=== PATIENT | male | born 1980 | race American Indian/Alaskan Native ===

== ENCOUNTER 2022-06-07 19:32 | Emergency (ER) | payer MEDICAID ==
[~2022-06-07] VITALS: Ht 167.6 cm; Wt 93.0 kg
[2022-06-07 20:00] VITALS: BP 119/77
[2022-06-07] MEDS ORDERED: LIDOCAINE HCL/PF 1% 10 MG/ML 5ML VIAL INFIL ONE (23:15)
[2022-06-07] MEDS ORDERED: TETANUS, DIPHTHERIA, PERTUSSIS VAC/PF 0.5ML (>10YR OLD) IM ONE (23:15)
[2022-06-07] MEDS ORDERED: BACITRACIN ZINC OINT UDPKT TOP ONE (23:15)
[2022-06-07] MEDS ORDERED: IBUPROFEN 600MG TABLET PO ONE (23:15)
== END 2022-06-08 02:36 | disposition left against medical advice (07) ==
LOC: ER 22:08
DX: S01.511A Laceration without foreign body of lip, initial encounter (principal); W26.8XXA Contact with other sharp object(s), not elsewhere classified, initial encounter; Y93.89 Activity, other specified; Y92.89 Other specified places as the place of occurrence of the external cause
CPT/HCPCS: 40650; 99282; 99284

== ENCOUNTER 2022-07-31 07:55 | Emergency (ER) | payer MEDICAID, OTHER ==
[~2022-07-31] VITALS: Ht 160 cm; Wt 73.0 kg
[2022-07-31 07:58] VITALS: BP 124/99
== END 2022-07-31 08:53 ==
LOC: ER 07:55
DX: S01.81XA Laceration without foreign body of other part of head, initial encounter (principal); F10.129 Alcohol abuse with intoxication, unspecified; Y90.9 Presence of alcohol in blood, level not specified; X58.XXXA Exposure to other specified factors, initial encounter; Y93.89 Activity, other specified; Y92.89 Other specified places as the place of occurrence of the external cause; Z65.3 Problems related to other legal circumstances
CPT/HCPCS: 12011; 99283

== ENCOUNTER 2024-02-07 05:30 | Emergency (ER) | payer MEDICAID ==
[~2024-02-07] VITALS: Ht 167.6 cm; Wt 79.7 kg
[2024-02-07 05:37] VITALS: O2SAT 97
[2024-02-07 06:13] LABS: BASOPHILS % 0.6 % (0.0-2.0); DIFFERENTIAL COMMENT 0; EOSINOPHILS % 0.1 % (0.0-5.0); HEMATOCRIT. 43.7 % (42.0-52.0); HEMOGLOBIN. 14.9 g/dL (14.0-18.0); LYMPHOCYTES % 12.1 % (20.0-50.0); MEAN CORPUSCULAR HEMOGLOBIN 33.3 pg (28.0-32.0); MEAN CORPUSCULAR HGB CONC 34.2 g/dL (31.0-37.0); MEAN CORPUSCULAR VOLUME 97.4 fL (80.0-94.0); MEAN PLATELET VOLUME 9.3 fl (7.4-10.4); NEUTROPHILS % 83.2 % (40.0-76.0); PLATELET 208 x1000/uL (130-400); RED BLOOD CELL COUNT 4.48 mill/uL (4.7-6.1); RED CELL DISTRIBUTION WIDTH 13.2 % (11.6-14.6); WHITE BLOOD COUNT 9.6 x1000/uL (4.5-11.0)
[2024-02-07 06:20] LABS: CHLORIDE 109 mEq/L (98-107); POTASSIUM 3.6 mEq/L (3.5-5.1); SODIUM 141 mEq/L (136-145)
[2024-02-07 06:21] LABS: CALCIUM 9.5 mg/dL (8.7-10.4); CARBON DIOXIDE 25 mEq/L (21-32)
[2024-02-07 06:26] LABS: CREATININE 0.7 mg/dL (0.6-1.3); GLUCOSE 113 mg/dL (70-105); UREA NITROGEN BLOOD 7 mg/dL (9-23)
[2024-02-07 06:36] LABS: ETHANOL BLOOD < 10 mg/dL (<10)
[2024-02-07 09:22] LABS: CLARITY URINE CLEAR (CLEAR); COLOR URINE YELLOW (YELLOW); GLUCOSE URINE NEGATIVE (NEGATIVE); KETONES URINE NEGATIVE (NEGATIVE); LEUKOCYTE ESTERASE URINE TRACE (NEGATIVE); NITRITE URINE NEGATIVE (NEGATIVE); OCCULT BLOOD URINE NEGATIVE (NEGATIVE); PH URINE 6.5 (4.5-8.0); PROTEIN URINE NEGATIVE (NEGATIVE); SPECIFIC GRAVITY URINE 1.022 (1.005-1.030); UROBILINOGEN URINE 0.2 E.U./dL (0.2-1.0)
[2024-02-07 09:55] LABS: *AMPHETAMINES SCREEN URINE NEGATIVE (NEGATIVE); *BARBITURATES SCREEN URINE NEGATIVE (NEGATIVE); *BENZODIAZEPINES SCREEN URINE NEGATIVE (NEGATIVE); *COCAINE SCREEN URINE NEGATIVE (NEGATIVE); CANNABINOID URINE SCREEN PRESUMPTIVE POSITIVE (NEGATIVE); ECSTASY MDMA SCREEN URINE NEGATIVE (NEGATIVE); METHADONE URINE SCREEN NEGATIVE (NEGATIVE); OPIATES URINE SCREEN NEGATIVE (NEGATIVE); PHENCYCLIDINE URINE SCREEN NEGATIVE (NEGATIVE)
[2024-02-07 10:21] LABS: MUCUS URINE 2+ /lpf (NONE/TRACE)
[2024-02-07 10:22] LABS: BACTERIA URINE TRACE; SQUAMOUS EPITHELIAL CELL URINE NONE SEEN /lpf (RARE/1+)
[2024-02-07 10:23] LABS: RBC URINE 0-2 /hpf (0-2)
[2024-02-08] MEDS: BUPROPION HCL 150MG TABLET XL 24HR PO SCH (09:00)
[2024-02-08] MEDS: QUETIAPINE FUMARATE 25MG TABLET PO SCH (09:00)
[2024-02-08] MEDS: QUETIAPINE FUMARATE 50MG TABLET PO SCH (21:30)
[2024-02-09] MEDS: BUPROPION HCL 150MG TABLET XL 24HR PO SCH (14:18)
[2024-02-09] MEDS: QUETIAPINE FUMARATE 50MG TABLET PO SCH (21:35)
[2024-02-10 09:13] VITALS: TEMP 36.66960
[2024-02-10 12:19] VITALS: BP 130/70; PULSE 80; RESP 18; O2SAT 99
== END 2024-02-10 12:20 | disposition home or self-care (01) ==
LOC: ER 05:30
DX: R45.851 Suicidal ideations (principal); F31.9 Bipolar disorder, unspecified; F20.9 Schizophrenia, unspecified; Z20.822 Contact with and (suspected) exposure to COVID-19
CPT/HCPCS: 80305; 80048; 81003; 80320; 85025; 36415; 99285; 87426; Z7610; G0480

== ENCOUNTER 2024-03-02 20:14 | Emergency (ER) | payer MEDICAID ==
[~2024-03-02] VITALS: Ht 162.6 cm; Wt 78.0 kg
[2024-03-02 20:48] VITALS: O2SAT 99
[2024-03-02] MEDS: MORPHINE SULFATE 4 MG/ML INJ (FOR IV/IM USE) IM ONE (22:01)
[2024-03-02] MEDS: LIDOCAINE 5% PATCH TOP SCH (22:02)
[2024-03-02] MEDS ORDERED: LIDO700A15 TP (23:08)
[2024-03-03 00:28] VITALS: BP 123/83; PULSE 76; RESP 12; TEMP 36.61404; O2SAT 97
== END 2024-03-03 00:29 | disposition home or self-care (01) ==
LOC: ER 20:14
DX: G89.29 Other chronic pain (principal); M54.50 Low back pain, unspecified
CPT/HCPCS: 96372; 99283; J2270; Z7610

== ENCOUNTER 2024-06-05 09:16 | Emergency (ER) | payer MEDICAID ==
[~2024-06-05] VITALS: Ht 167.6 cm; Wt 95.0 kg
[~2024-06-05 09:16] MED LIST: LIDO700A15 TP
[2024-06-05 09:32] VITALS: O2SAT 99
[2024-06-05 10:08] VITALS: BP 143/105; PULSE 70; RESP 16; TEMP 98; O2SAT 98
[2024-06-05] MEDS ORDERED: QUET200T MT (10:13)
[2024-06-05] MEDS ORDERED: BUPR300T52 PO (10:13)
== END 2024-06-05 11:35 | disposition home or self-care (01) ==
LOC: ER 09:27
DX: Z76.0 Encounter for issue of repeat prescription (principal); F41.9 Anxiety disorder, unspecified; F32.A Depression, unspecified; F12.10 Cannabis abuse, uncomplicated; Z79.899 Other long term (current) drug therapy
CPT/HCPCS: 99281

== ENCOUNTER 2024-08-04 17:14 | Emergency (ER) | payer MEDICAID ==
[~2024-08-04] VITALS: Ht 167.6 cm; Wt 95.0 kg
[~2024-08-04 17:14] MED LIST changes: +BUPR300T52 PO; +QUET200T MT
[2024-08-04 17:38] VITALS: O2SAT 99
[2024-08-04] MEDS: KETOROLAC 30MG/ML VIAL IM STA (18:13)
[2024-08-04] MEDS: ONDANSETRON 4MG ODT PO STA (18:15)
[2024-08-04 19:23] LABS: BASOPHILS % 0.4 % (0.0-2.0); EOSINOPHILS % 1.7 % (0.0-5.0); HEMATOCRIT. 43.4 % (42.0-52.0); HEMOGLOBIN. 14.8 g/dL (14.0-18.0); LYMPHOCYTES % 36.5 % (20.0-50.0); MEAN CORPUSCULAR HEMOGLOBIN 32.5 pg (28.0-32.0); MEAN CORPUSCULAR HGB CONC 34.2 g/dL (31.0-37.0); MEAN CORPUSCULAR VOLUME 94.9 fL (80.0-94.0); MEAN PLATELET VOLUME 9.4 fl (7.4-10.4); MONOCYTES % 6.6 % (2.0-8.0); NEUTROPHILS % 54.8 % (40.0-76.0); PLATELET 172 x1000/uL (130-400); RED BLOOD CELL COUNT 4.57 mill/uL (4.7-6.1); RED CELL DISTRIBUTION WIDTH 13.1 % (11.6-14.6); WHITE BLOOD COUNT 6.8 x1000/uL (4.5-11.0)
[2024-08-04 19:24] LABS: DIFFERENTIAL COMMENT 1
[2024-08-04 19:32] LABS: CHLORIDE 104 mEq/L (98-107); POTASSIUM 3.9 mEq/L (3.5-5.1); SODIUM 140 mEq/L (136-145)
[2024-08-04 19:33] LABS: CARBON DIOXIDE 29 mEq/L (21-32)
[2024-08-04 19:38] LABS: CREATININE 0.8 mg/dL (0.6-1.3); GLUCOSE 95 mg/dL (70-105)
[2024-08-04 19:39] LABS: UREA NITROGEN BLOOD 10 mg/dL (9-23)
[2024-08-04 19:40] LABS: ALANINE AMINOTRANSFERASE 23 IU/L (10-49); ALBUMIN 4.1 g/dL (3.2-4.8); ASPARTATE AMINOTRANSFERASE 20 IU/L (<34)
[2024-08-04 19:41] LABS: BILIRUBIN DIRECT 0.1 mg/dL (<=3.0); BILIRUBIN TOTAL 0.4 mg/dL (0.1-1.0); PROTEIN TOTAL 7.1 g/dL (6.0-8.3)
[2024-08-04 19:46] LABS: TROPONIN I HIGH SENSITIVITY < 4 ng/L (3.0-53)
[2024-08-04 20:25] VITALS: BP 121/88; PULSE 84; RESP 18; TEMP 36.8; O2SAT 99
== END 2024-08-04 20:26 | disposition home or self-care (01) ==
LOC: ER 17:14
DX: R07.89 Other chest pain (principal); F12.90 Cannabis use, unspecified, uncomplicated; F31.9 Bipolar disorder, unspecified; F41.9 Anxiety disorder, unspecified; F17.210 Nicotine dependence, cigarettes, uncomplicated; Z79.899 Other long term (current) drug therapy
CPT/HCPCS: 99285; 71045; 80076; 80048; 83690; 85025; 84484; 36415; 93005; 96372; J1885; Q0162